=== PATIENT | female | born 1945 | race Caucasian/White ===

== ENCOUNTER 2018-11-30 13:01 | Outpatient (REF) | payer MEDICARE, SELFPAY ==
[2018-11-30 13:55] LABS: Anion Gap 7.4 mmol/L (3-11); BUN 19 mg/dL (7-18); CO2 25.6 mmol/L (21.0-32.0); CREATININE 1.07 mg/dL (0.55-1.02); Calcium 9.5 mg/dL (8.5-10.1); Chloride 107 mmol/L (98-107); Estimated GFR 50.41 (mL/min/1.73m2); Glucose 116 mg/dL (70-100); Potassium 4.1 mmol/L (3.5-5.1); Sodium 140 mmol/L (136-145)
[2018-11-30 14:15] LABS: C-Reactive Protein < 0.05 mg/dL (0.0-0.3)
[2018-11-30 14:47] LABS: ESR 17 mm/hr (0-30)
== END 2018-11-30 13:21 ==
LOC: NCHCN 13:01
PROVIDERS: PCP Internal Medicine; Visit Provider Specialist/Technologist Athletic Trainer
DX: M79.642 Pain in left hand (principal)
CPT/HCPCS: 80048; 85652; 86140

== ENCOUNTER 2019-01-13 11:23 | Outpatient (REF) | payer MEDICARE, SELFPAY ==
[2019-01-13 21:36] LABS: Abs Immature Grans 0.01 k/cumm (0.0-0.09); Absolute Basophil Count 0.07 k/cumm (0.0-0.2); Absolute Eosinophil Count 0.38 k/cumm (0.0-0.7); Absolute Lymphocyte Count 1.78 k/cumm (1.2-3.4); Absolute Monocyte Count 0.47 k/cumm (0.11-0.7); Absolute Neutrophil Count 4.44 k/cumm (1.2-6.7); Eosinophils % 5.3; HCT 39.6 % (36.0-46.0); HGB 13.1 g/dL (12.0-15.5); Immature Grans % 0.1; Lymphocytes % 24.9; Mean Corp. HGB Concentration 33.1 g/dL (32.0-36.0); Mean Corpuscular Hemoglobin 29.3 pg (27.0-33.0); Mean Corpuscular Volume 88.6 fL (80-95); Mean Platelet Volume 10.4 fL (8.0-11.0); Monocytes % 6.6; Neutrophils % 62.1; Platelet Count 350 x1000/uL (130-400); RBC 4.47 m/cumm (4.00-5.20); RBC Distribution Width 12.1 % (11.7-14.6); White Blood Cell Count 7.15 k/cumm (4.4-10.8)
[2019-01-17 08:17] LABS: Lyme Ab w Rflx to Lyme Confirm Negative (Negative)
[2019-01-17 10:40] LABS: Cyclic Citrullinated Peptide <2.5 U/mL; Rheumatoid Factor <7.5 IU/mL
[2019-01-17 16:11] LABS: Anaplasma phagocytophilum Negative (Negative); B. miyamotoi PCR Negative (Negative); Babesia divergens/MO-1 Negative (Negative); Babesia duncani Negative (Negative); Babesia microti Negative (Negative); Ehrlichia chaffeensis Negative (Negative); Ehrlichia ewingii/canis Negative (Negative); Ehrlichia muris eauclairensis Negative (Negative)
== END 2019-01-13 11:43 ==
LOC: NCHCN 11:23
PROVIDERS: PCP Internal Medicine; Visit Provider Internal Medicine
DX: M79.642 Pain in left hand (principal); M12.849 Other specific arthropathies, not elsewhere classified, unspecified hand
CPT/HCPCS: 86200; 87798; 85025; 86431; 86618

== ENCOUNTER 2019-02-27 10:11 | Outpatient (CLI) | payer MEDICARE, SELFPAY ==
[2019-02-27 11:36] LABS: Uric Acid 2.7 mg/dL (2.6-6.0)
== END 2019-02-27 10:31 ==
PROVIDERS: PCP Internal Medicine; Visit Provider Nurse Practitioner Family
DX: R53.82 Chronic fatigue, unspecified (principal); M19.90 Unspecified osteoarthritis, unspecified site; M25.50 Pain in unspecified joint
CPT/HCPCS: 36415; 84443; 84550

== ENCOUNTER 2019-06-23 01:40 | Outpatient (CLI) | payer MEDICARE, SELFPAY ==
[2019-06-23 09:45] LABS: Abs Immature Grans 0.03 k/cumm (0.0-0.09); Absolute Basophil Count 0.03 k/cumm (0.0-0.2); Absolute Eosinophil Count 0.12 k/cumm (0.0-0.7); Absolute Lymphocyte Count 1.24 k/cumm (1.2-3.4); Absolute Monocyte Count 0.23 k/cumm (0.11-0.7); Absolute Neutrophil Count 8.46 k/cumm (1.2-6.7); Basophils % 0.3; Eosinophils % 1.2; HGB 13.2 g/dL (12.0-15.5); Immature Grans % 0.3 %; Lymphocytes % 12.3; Mean Corp. HGB Concentration 32.2 g/dL (32.0-36.0); Mean Corpuscular Hemoglobin 28.8 pg (27.0-33.0); Mean Corpuscular Volume 89.3 fL (80-95); Mean Platelet Volume 9.6 fL (8.0-11.0); Monocytes % 2.3; Neutrophils % 83.6; Platelet Count 342 x1000/uL (130-400); RBC 4.59 m/cumm (4.00-5.20); RBC Distribution Width 13.2 % (11.7-14.6); White Blood Cell Count 10.11 k/cumm (4.4-10.8)
[2019-06-23 10:41] LABS: ALT 36 U/L (14-59); AST 20 U/L (15-37); Albumin 3.6 g/dL (3.4-5.0); Alkaline Phosphatase 80 U/L (46-116); BUN 21 mg/dL (7-18); Bilirubin, Total 0.4 mg/dL (0.2-1.0); C-Reactive Protein < 0.05 mg/dL (0.0-0.3); CREATININE 1.11 mg/dL (0.55-1.02); Chloride 105 mmol/L (98-107); Estimated GFR 48.32 (mL/min/1.73m2); Glucose 113 mg/dL (74-106); Potassium 4.5 mmol/L (3.5-5.1); Sodium 142 mmol/L (136-145); Total Protein 6.7 g/dL (6.4-8.2)
== END 2019-06-23 02:00 ==
PROVIDERS: PCP Internal Medicine; Visit Provider Nurse Practitioner Family
DX: M19.90 Unspecified osteoarthritis, unspecified site (principal); Z79.899 Other long term (current) drug therapy
CPT/HCPCS: 36415; 80053; 85025; 86140

== ENCOUNTER 2019-09-08 01:18 | Outpatient (CLI) | payer MEDICARE, SELFPAY ==
[2019-09-08 10:58] LABS: Abs Immature Grans 0.03 k/cumm (0.0-0.09); Absolute Basophil Count 0.05 k/cumm (0.0-0.2); Absolute Eosinophil Count 0.22 k/cumm (0.0-0.7); Absolute Lymphocyte Count 2.34 k/cumm (1.2-3.4); Absolute Monocyte Count 0.76 k/cumm (0.11-0.7); Absolute Neutrophil Count 5.88 k/cumm (1.2-6.7); Basophils % 0.5; Eosinophils % 2.4; HCT 41.7 % (36.0-46.0); HGB 13.7 g/dL (12.0-15.5); Immature Grans % 0.3 %; Lymphocytes % 25.2; Mean Corp. HGB Concentration 32.9 g/dL (32.0-36.0); Mean Corpuscular Hemoglobin 29.6 pg (27.0-33.0); Mean Corpuscular Volume 90.1 fL (80-95); Mean Platelet Volume 9.6 fL (8.0-11.0); Monocytes % 8.2; Neutrophils % 63.4; Platelet Count 393 x1000/uL (130-400); RBC 4.63 m/cumm (4.00-5.20); RBC Distribution Width 13.5 % (11.7-14.6); White Blood Cell Count 9.28 k/cumm (4.4-10.8)
[2019-09-08 11:44] LABS: ALT 29 U/L (14-59); AST 18 U/L (15-37); Albumin 3.5 g/dL (3.4-5.0); Alkaline Phosphatase 77 U/L (46-116); Anion Gap 6.8 mmol/L (3-11); BUN 21 mg/dL (7-18); Bilirubin, Total 0.2 mg/dL (0.2-1.0); CO2 29.2 mmol/L (21.0-32.0); CREATININE 0.98 mg/dL (0.55-1.02); Calcium 10.2 mg/dL (8.5-10.1); Chloride 104 mmol/L (98-107); Estimated GFR 55.79 (mL/min/1.73m2); Glucose 107 mg/dL (74-106); Potassium 4.4 mmol/L (3.5-5.1); Sodium 140 mmol/L (136-145); Total Protein 6.8 g/dL (6.4-8.2)
[2019-09-08 11:45] LABS: C-Reactive Protein < 0.05 mg/dL (0.0-0.3)
[2019-09-11 09:22] LABS: Hepatitis B Surface Ag Negative (Negative)
[2019-09-13 15:48] LABS: TB Interpretation Negative (Negative)
== END 2019-09-08 01:38 ==
PROVIDERS: PCP Internal Medicine; Visit Provider Nurse Practitioner Family
DX: M06.041 Rheumatoid arthritis without rheumatoid factor, right hand (principal); M06.042 Rheumatoid arthritis without rheumatoid factor, left hand; Z79.899 Other long term (current) drug therapy; M19.90 Unspecified osteoarthritis, unspecified site
CPT/HCPCS: 36415; 80053; 87340; 85025; 86140; 86480

== ENCOUNTER 2019-11-23 10:09 | Outpatient (REF) | payer MEDICARE, SELFPAY ==
[2019-11-23 21:30] LABS: Calculated LDL 155 mg/dL (<100); Cholesterol 232 mg/dL (<200); HDL Cholesterol 51 mg/dL (40-60); Triglyceride 131 mg/dL (<150)
== END 2019-11-23 10:29 ==
LOC: NCHCN 10:09
PROVIDERS: PCP Internal Medicine; Visit Provider Internal Medicine
DX: E78.89 Other lipoprotein metabolism disorders (principal); Z13.6 Encounter for screening for cardiovascular disorders
CPT/HCPCS: 80061

== ENCOUNTER 2020-02-22 01:55 | Outpatient (CLI) | payer MEDICARE, SELFPAY ==
[2020-02-22 09:10] LABS: Abs Immature Grans 0.02 10^3/uL (0.0-0.06); Absolute Basophil Count 0.09 10^3/uL (0.0-0.2); Absolute Eosinophil Count 0.31 10^3/uL (0.0-0.7); Absolute Lymphocyte Count 1.74 10^3/uL (1.2-3.4); Absolute Monocyte Count 0.37 10^3/uL (0.1-0.8); Basophils % 1.2; Eosinophils % 4.2; HCT 39.2 % (36.0-46.0); HGB 12.9 g/dL (11.2-15.7); Immature Grans % 0.3; Lymphocytes % 23.4; MCH 28.5 pg (27.0-33.0); MCHC 32.9 % (32.0-36.0); MCV 86.5 fL (80-95); MPV 9.6 fL (8.0-11.0); Neutrophils % 65.9; Nucleated RBC 0 %; Platelet Count 350 10^3/uL (130-400); RBC 4.53 10^6/uL (3.93-5.22); RDW 12.1 % (11.7-14.6); RDW-SD 38.4 fL; WBC 7.43 10^3/uL (4.4-10.8)
[2020-02-22 11:34] LABS: C-Reactive Protein < 0.05 mg/dL (0.0-0.3)
== END 2020-02-22 02:15 ==
PROVIDERS: PCP Internal Medicine; Visit Provider Nurse Practitioner Family
DX: M19.90 Unspecified osteoarthritis, unspecified site (principal); Z79.899 Other long term (current) drug therapy
CPT/HCPCS: 36415; 80053; 85025; 86140

== ENCOUNTER 2020-05-27 13:49 | Outpatient (REF) | payer MEDICARE, SELFPAY ==
[2020-05-27 14:15] LABS: Calculated LDL 138 mg/dL (<100); Cholesterol 211 mg/dL (<200); HDL Cholesterol 57 mg/dL (40-60); Triglyceride 82 mg/dL (<150)
== END 2020-05-27 13:50 | disposition home or self-care (01) ==
LOC: NCHCN 13:49
PROVIDERS: PCP Internal Medicine; Visit Provider Internal Medicine
DX: Z13.220 Encounter for screening for lipoid disorders (principal)
CPT/HCPCS: 80061

== ENCOUNTER 2020-08-30 02:50 | Outpatient (CLI) | payer MEDICARE, SELFPAY ==
[2020-08-30 10:37] LABS: Abs Immature Grans 0.02 10^3/uL (0.0-0.06); Absolute Basophil Count 0.08 10^3/uL (0.0-0.2); Absolute Eosinophil Count 0.55 10^3/uL (0.0-0.7); Absolute Lymphocyte Count 2.08 10^3/uL (1.2-3.4); Absolute Monocyte Count 0.49 10^3/uL (0.1-0.8); Absolute Neutrophil Count 2.28 10^3/uL (1.2-6.7); Basophils % 1.5; HCT 39.4 % (36.0-46.0); HGB 12.9 g/dL (11.2-15.7); Immature Grans % 0.4; Lymphocytes % 37.8; MCH 29.1 pg (27.0-33.0); MCHC 32.7 % (32.0-36.0); MCV 88.7 fL (80-95); MPV 9.5 fL (8.0-11.0); Monocytes % 8.9; Neutrophils % 41.4; Nucleated RBC 0 %; Platelet Count 300 10^3/uL (130-400); RBC 4.44 10^6/uL (3.93-5.22); RDW 12.1 % (11.7-14.6); RDW-SD 39.2 fL
[2020-08-30 11:22] LABS: ALT 26 U/L (14-59); AST 19 U/L (15-37); Albumin 3.5 g/dL (3.4-5.0); Alkaline Phosphatase 79 U/L (46-116); Anion Gap 9.8 mmol/L (3-11); BUN 22 mg/dL (7-18); Bilirubin, Total 0.3 mg/dL (0.2-1.0); C-Reactive Protein 0.11 mg/dL (0.0-0.3); CO2 27.2 mmol/L (21.0-32.0); Calcium 10.3 mg/dL (8.5-10.1); Chloride 104 mmol/L (98-107); Estimated GFR 54.35 (mL/min/1.73m2); Glucose 94 mg/dL (74-106); Potassium 4.3 mmol/L (3.5-5.1); Sodium 141 mmol/L (136-145); Total Protein 6.9 g/dL (6.4-8.2)
== END 2020-08-30 02:51 | disposition home or self-care (01) ==
LOC: LBO 02:50
PROVIDERS: PCP Internal Medicine; Visit Provider Nurse Practitioner Family
DX: M05.841 Other rheumatoid arthritis with rheumatoid factor of right hand (principal); M05.842 Other rheumatoid arthritis with rheumatoid factor of left hand
CPT/HCPCS: 36415; 80053; 85025; 86140

== ENCOUNTER 2020-12-26 02:40 | Outpatient (CLI) | payer MEDICARE, SELFPAY ==
[2020-12-26 08:42] LABS: Abs Immature Grans 0.01 10^3/uL (0.0-0.06); Absolute Basophil Count 0.08 10^3/uL (0.0-0.2); Absolute Eosinophil Count 0.74 10^3/uL (0.0-0.7); Absolute Lymphocyte Count 1.91 10^3/uL (1.2-3.4); Absolute Monocyte Count 0.54 10^3/uL (0.1-0.8); Absolute Neutrophil Count 2.18 10^3/uL (1.2-6.7); Basophils % 1.5; Eosinophils % 13.6; HCT 38.1 % (36.0-46.0); HGB 12.5 g/dL (11.2-15.7); Immature Grans % 0.2; MCH 29.9 pg (27.0-33.0); MCHC 32.8 % (32.0-36.0); MCV 91.1 fL (80-95); MPV 9.6 fL (8.0-11.0); Monocytes % 9.9; Neutrophils % 39.8; Nucleated RBC 0 %; Platelet Count 249 10^3/uL (130-400); RBC 4.18 10^6/uL (3.93-5.22); RDW 11.9 % (11.7-14.6); RDW-SD 39.9 fL; WBC 5.46 10^3/uL (4.4-10.8)
[2020-12-26 09:38] LABS: ALT 27 U/L (14-59); AST 19 U/L (15-37); Albumin 3.5 g/dL (3.4-5.0); Alkaline Phosphatase 73 U/L (46-116); Anion Gap 5.9 mmol/L (3-11); BUN 20 mg/dL (7-18); Bilirubin, Total 0.3 mg/dL (0.2-1.0); CO2 29.1 mmol/L (21.0-32.0); CREATININE 0.9 mg/dL (0.55-1.02); Calcium 9.7 mg/dL (8.5-10.1); Chloride 106 mmol/L (98-107); Glucose 98 mg/dL (74-106); Potassium 4.2 mmol/L (3.5-5.1); Sodium 141 mmol/L (136-145); Total Protein 6.6 g/dL (6.4-8.2)
[2020-12-26 09:39] LABS: C-Reactive Protein < 0.05 mg/dL (0.0-0.3)
== END 2020-12-26 02:41 | disposition home or self-care (01) ==
LOC: LBO 02:40
PROVIDERS: PCP Internal Medicine; Visit Provider Nurse Practitioner Family
DX: M19.90 Unspecified osteoarthritis, unspecified site (principal); Z79.899 Other long term (current) drug therapy
CPT/HCPCS: 36415; 80053; 85025; 86140

== ENCOUNTER 2021-08-11 03:42 | Outpatient (CLI) | payer MEDICARE, SELFPAY ==
[2021-08-11 12:17] LABS: Abs Immature Grans 0.01 10^3/uL (0.0-0.06); Absolute Basophil Count 0.11 10^3/uL (0.0-0.2); Absolute Eosinophil Count 0.52 10^3/uL (0.0-0.7); Absolute Monocyte Count 0.46 10^3/uL (0.1-0.8); Absolute Neutrophil Count 3.48 10^3/uL (1.2-6.7); Basophils % 1.6; Eosinophils % 7.8; HCT 39.6 % (36.0-46.0); HGB 12.9 g/dL (11.2-15.7); Immature Grans % 0.1; Lymphocytes % 31.4; MCH 29.3 pg (27.0-33.0); MCHC 32.6 % (32.0-36.0); MCV 90 fL (80-95); MPV 9.4 fL (8.0-11.0); Monocytes % 6.9; Neutrophils % 52.2; Platelet Count 302 10^3/uL (130-400); RDW 11.9 % (11.7-14.6); WBC 6.68 10^3/uL (4.4-10.8)
[2021-08-11 14:00] LABS: ALT 28 U/L (14-59); AST 18 U/L (15-37); Albumin 3.5 g/dL (3.4-5.0); Alkaline Phosphatase 83 U/L (46-116); Anion Gap 10.8 mmol/L (3-11); BUN 21 mg/dL (7-18); Bilirubin, Total 0.3 mg/dL (0.2-1.0); CO2 23.2 mmol/L (21.0-32.0); Calcium 9.1 mg/dL (8.5-10.1); Chloride 106 mmol/L (98-107); Glucose 99 mg/dL (74-106); Potassium 4.3 mmol/L (3.5-5.1); Sodium 140 mmol/L (136-145); Total Protein 7.1 g/dL (6.4-8.2)
[2021-08-11 14:15] LABS: C-Reactive Protein < 0.05 mg/dL (0.0-0.3)
== END 2021-08-11 03:43 | disposition home or self-care (01) ==
LOC: LBO 03:42
PROVIDERS: PCP Internal Medicine; Visit Provider Nurse Practitioner Family
DX: M06.041 Rheumatoid arthritis without rheumatoid factor, right hand (principal); M06.042 Rheumatoid arthritis without rheumatoid factor, left hand
CPT/HCPCS: 36415; 80053; 85025; 86140

== ENCOUNTER 2022-03-26 02:50 | Outpatient (CLI) | payer MEDICARE, SELFPAY ==
--- NOTE | 2022-03-26 09:48 | DI.RAD_ITS ---
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 TECHNIQUE: 2D digital imaging was performed. COMPARISON: No exams were available for comparison FINDINGS: Six views No evidence of compression fracture. There is degenerative anterolisthesis of L4 upon L5 with approx imately 1 cm anterior slippage of L4 upon L5 due to facet arthropathy. There are no pars defects justin dent. Mild disc space narrowing noted at the other disc spaces. At L3-4 level there is more prominent disc space narrowing on the right side of the disc space on the left side. There right-sided osteophytes this level. This may indicate an element of foraminal stenosis on the right side at this level ther e is relative preservation of disc height L5-S1. Mild facet joint degenerative changes noted. No os seous lesions. SI joints unremarkable. IMPRESSION: Degenerative findings as described above. Also degenerative anterolisthesis L4 upon L5. DATA REPOSITORY: RADIATION DOSE DELIVERED:
== END 2022-03-26 03:10 ==
LOC: DI 02:50
PROVIDERS: PCP Internal Medicine; Visit Provider Nurse Practitioner Family
DX: M43.16 Spondylolisthesis, lumbar region; M51.17 Intervertebral disc disorders with radiculopathy, lumbosacral region
CPT/HCPCS: 72110

== ENCOUNTER 2022-07-02 02:07 | Outpatient (CLI) | payer MEDICARE, SELFPAY ==
[2022-07-02 08:30] LABS: Abs Immature Grans 0.02 10^3/uL (0.0-0.06); Absolute Basophil Count 0.09 10^3/uL (0.0-0.2); Absolute Eosinophil Count 0.67 10^3/uL (0.0-0.7); Absolute Lymphocyte Count 1.96 10^3/uL (1.2-3.4); Absolute Monocyte Count 0.52 10^3/uL (0.1-0.8); Absolute Neutrophil Count 2.52 10^3/uL (1.2-6.7); Basophils % 1.6; Eosinophils % 11.6; HCT 37.8 % (36.0-46.0); HGB 12.7 g/dL (11.2-15.7); Immature Grans % 0.3; Lymphocytes % 33.9; MCH 29.7 pg (27.0-33.0); MCHC 33.6 % (32.0-36.0); MCV 89 fL (80-95); MPV 9.2 fL (8.0-11.0); Neutrophils % 43.6; Platelet Count 272 10^3/uL (130-400); RBC 4.27 10^6/uL (3.93-5.22); RDW 11.9 % (11.7-14.6); RDW-SD 37.4 fL; WBC 5.78 10^3/uL (4.4-10.8)
[2022-07-02 09:09] LABS: ALT 30 U/L (14-59); AST 24 U/L (15-37); Albumin 3.2 g/dL (3.4-5.0); Alkaline Phosphatase 71 U/L (46-116); Anion Gap 2.4 mmol/L (3-11); BUN 21 mg/dL (7-18); Bilirubin, Total 0.3 mg/dL (0.2-1.0); CO2 30.6 mmol/L (21.0-32.0); Calcium 9.3 mg/dL (8.5-10.1); Chloride 106 mmol/L (98-107); Estimated GFR 58.75 (mL/min/1.73m2); Glucose 97 mg/dL (74-106); Potassium 4.2 mmol/L (3.5-5.1); Sodium 139 mmol/L (136-145); Total Protein 6.7 g/dL (6.4-8.2)
[2022-07-02 09:11] LABS: C-Reactive Protein < 0.05 mg/dL (0.0-0.3)
== END 2022-07-02 02:08 | disposition home or self-care (01) ==
LOC: LBO 02:08
PROVIDERS: PCP Internal Medicine; Visit Provider Nurse Practitioner Family
DX: M06.041 Rheumatoid arthritis without rheumatoid factor, right hand (principal); M06.042 Rheumatoid arthritis without rheumatoid factor, left hand; D84.821 Immunodeficiency due to drugs; Z79.899 Other long term (current) drug therapy
CPT/HCPCS: 36415; 80053; 85025; 86140

== ENCOUNTER 2023-01-27 11:29 | Outpatient (REF) | payer MEDICARE, SELFPAY ==
[2023-01-27 14:28] LABS: Abs Immature Grans 0.01 10^3/uL (0.0-0.06); Absolute Eosinophil Count 0.51 10^3/uL (0.0-0.7); Absolute Lymphocyte Count 2.02 10^3/uL (1.2-3.4); Absolute Monocyte Count 0.43 10^3/uL (0.1-0.8); Absolute Neutrophil Count 2.85 10^3/uL (1.2-6.7); Basophils % 1.7; Eosinophils % 8.6; HCT 38.7 % (36.0-46.0); Immature Grans % 0.2; Lymphocytes % 34.1; MCH 29.4 pg (27.0-33.0); MCHC 33.6 % (32.0-36.0); MCV 88 fL (80-95); MPV 10.2 fL (8.0-11.0); Monocytes % 7.3; Neutrophils % 48.1; Platelet Count 311 10^3/uL (130-400); RBC 4.42 10^6/uL (3.93-5.22); RDW 11.8 % (11.7-14.6); WBC 5.92 10^3/uL (4.4-10.8)
[2023-01-27 14:56] LABS: ALT 25 U/L (14-59); AST 20 U/L (15-37); Albumin 3.3 g/dL (3.4-5.0); Alkaline Phosphatase 79 U/L (46-116); Anion Gap 4.1 mmol/L (3-11); BUN 24 mg/dL (7-18); Bilirubin, Total 0.3 mg/dL (0.2-1.0); CO2 26.9 mmol/L (21.0-32.0); Calcium 10.2 mg/dL (8.5-10.1); Calculated LDL 139 mg/dL (<100); Chloride 106 mmol/L (98-107); Cholesterol 221 mg/dL (<200); Estimated GFR 58.39 (mL/min/1.73m2); Glucose 122 mg/dL (74-106); HDL Cholesterol 52 mg/dL (40-60); Potassium 4.2 mmol/L (3.5-5.1); Sodium 137 mmol/L (136-145); Total Protein 7.1 g/dL (6.4-8.2); Triglyceride 152 mg/dL (<150)
== END 2023-01-27 11:30 | disposition home or self-care (01) ==
LOC: NCHCN 11:29
PROVIDERS: PCP Family Medicine; Visit Provider Family Medicine
DX: I10 Essential (primary) hypertension (principal)
CPT/HCPCS: 80053; 80061; 85025

== ENCOUNTER 2023-09-28 01:33 | Outpatient (CLI) | payer MEDICARE, SELFPAY ==
[2023-09-28 11:34] LABS: Abs Immature Grans 0.01 10^3/uL (0.0-0.06); Absolute Basophil Count 0.03 10^3/uL (0.0-0.2); Absolute Eosinophil Count 0.01 10^3/uL (0.0-0.7); Absolute Lymphocyte Count 0.56 10^3/uL (1.2-3.4); Absolute Monocyte Count 0.11 10^3/uL (0.1-0.8); Absolute Neutrophil Count 1.28 10^3/uL (1.2-6.7); Basophils % 1.5 %; Eosinophils % 0.5 %; HCT 39.2 % (36.0-46.0); HGB 12.3 g/dL (11.2-15.7); Immature Grans % 0.5 %; MCH 26.6 pg (27.0-33.0); MCHC 31.4 % (32.0-36.0); MCV 85 fL (80-95); MPV 9.4 fL (8.0-11.0); Monocytes % 5.5 %; Platelet Count 216 10^3/uL (130-400); RBC 4.63 10^6/uL (3.93-5.22); RDW 14.2 % (11.7-14.6); RDW-SD 43.7 fL
[2023-09-28 11:43] LABS: ALT 25 U/L (14-59); AST 24 U/L (15-37); Albumin 3.1 g/dL (3.4-5.0); Alkaline Phosphatase 87 U/L (46-116); Anion Gap 6.1 mmol/L (3-11); BUN 16 mg/dL (7-18); Bilirubin, Total 0.18 mg/dL (0.2-1.0); CO2 29.9 mmol/L (21.0-32.0); Calcium 10.2 mg/dL (8.5-10.1); Chloride 102 mmol/L (98-107); Estimated GFR 58.39 (mL/min/1.73m2); Glucose 117 mg/dL (74-106); Potassium 4.4 mmol/L (3.5-5.1); Sodium 138 mmol/L (136-145); Total Protein 7.2 g/dL (6.4-8.2)
== END 2023-09-28 01:34 | disposition home or self-care (01) ==
LOC: LBO 01:33
PROVIDERS: PCP Family Medicine; Visit Provider Student in an Organized Health Care Education/Training Program
DX: Z79.899 Other long term (current) drug therapy (principal); M06.041 Rheumatoid arthritis without rheumatoid factor, right hand; M06.042 Rheumatoid arthritis without rheumatoid factor, left hand; D84.821 Immunodeficiency due to drugs
CPT/HCPCS: 36415; 80053; 85025

== ENCOUNTER 2023-09-29 08:16 | Outpatient (CLI) | payer MEDICARE, SELFPAY ==
[2023-09-29 08:55] LABS: Abs Immature Grans 0.01 10^3/uL (0.0-0.06); Absolute Basophil Count 0.02 10^3/uL (0.0-0.2); HCT 38.4 % (36.0-46.0); HGB 12.3 g/dL (11.2-15.7); MCH 27.5 pg (27.0-33.0); MCV 86 fL (80-95); MPV 9.4 fL (8.0-11.0); Platelet Count 185 10^3/uL (130-400); RBC 4.48 10^6/uL (3.93-5.22); RDW 14.2 % (11.7-14.6)
[2023-09-29 09:34] LABS: WBC 1.86 10^3/uL (4.4-10.8)
[2023-09-29 09:35] LABS: Absolute Eosinophil Count 0.04 10^3/uL (0.0-0.7); Absolute Lymphocyte Count 0.48 10^3/uL (1.2-3.4); Absolute Monocyte Count 0.07 10^3/uL (0.1-0.8); Absolute Neutrophil Count 1.23 10^3/uL (1.2-6.7); Bands % 16 %; Diff Comment Manual Differential; Myelocytes % 1; RBC Morphology Normal
[2023-09-29 09:59] LABS: COMMENT (LAB VIEW ONLY) 213.33 mg/dL; PROTEIN 51.4 mg/dL; Prot/Crea Ur Ratio 0.24
[2023-09-29 12:18] LABS: Bilirubin Negative (Negative); Blood Negative (Negative); Clarity Sl Cloudy (Clear); Glucose Negative (Negative); Ketones Trace mg/dL (Negative); Leukocyte Esterase Negative (Negative); Nitrite Negative (Negative); Urobilinogen 0.2 mg/dL (Up to 0.2)
[2023-09-30 09:43] LABS: C3 Complement 101 mg/dL (81-157); C4 Complement 31 mg/dL (13-39)
[2023-09-30 12:38] LABS: ANA Interpretation Negative (Negative)
[2023-09-30 13:17] LABS: RNP Ab, IgG <6.0 CU (<20.0); Ro60 Ab, IgG <7.0 CU (<20.0); SS-A/Ro, IgG <2.3 CU (<20.0); SS-B (La) Ab, IgG <3.3 CU (<20.0); Sm (Smith) Ab, IgG <8.0 CU (<20.0); dsDNA Ab, IgG <22.0 IU/mL (<27.0)
[2023-09-30 14:53] LABS: Albumin 50.7 % (55.8-66.1); Albumin g/dL 3.3 g/dL (3.6-5.2); Immunotyping, Serum (See Note); Total Protein 6.6 g/dL (6.3-8.2)
[2023-09-30 16:00] LABS: Leukemia/Lymphoma by FC (Blood (See below)
== END 2023-09-29 08:17 | disposition home or self-care (01) ==
LOC: LBO 08:17
PROVIDERS: PCP Family Medicine; Visit Provider Student in an Organized Health Care Education/Training Program
DX: D72.810 Lymphocytopenia (principal)
CPT/HCPCS: 36415; 88185; 81003; 82565; 84155; 84156; 84165; 85025; 86038; 86160; 86225; 86235; 86320; 88184; 88189

== ENCOUNTER 2023-10-11 13:46 | Outpatient (CLI) | payer MEDICARE, SELFPAY ==
--- NOTE | 2023-10-11 14:00 | DI.RAD_ITS ---
Exam(s) XR HIP RT COMPLETE AP PELVIS EXAM: XR HIP RT COMPLETE AP PELVIS CLINICAL HISTORY: right hip pain. TECHNIQUE: 2D digital imaging was performed. Two views COMPARISON: No exams were available for comparison FINDINGS: BONES: No acute fracture is present. No bony destructive lesion is seen. JOINTS: No dislocation present. Moderate to severe narrowing of the right hip joint space. Periart icular spurring. Subchondral cysts on both sides of the joint. [id number] narrowing of the le ft hip joint space. Periarticular spurring. Small subchondral cysts. Mild degenerative changes of the pubic symphysis. SI joints are unremarkable. SOFT TISSUE: Normal. IMPRESSION: Moderate to severe degenerative changes of the right hip. [id number] degenerative changes of t he left hip. DATA REPOSITORY: RADIATION DOSE DELIVERED:
--- NOTE | 2023-10-11 14:00 | DI.RAD_ITS ---
Exam(s) XR KNEE RT 4V AP,LAT,JOSE,PAT EXAM: XR KNEE RT 4V AP,LAT,JOSE,PAT CLINICAL HISTORY: right knee pain. TECHNIQUE: 2D digital imaging was performed. Three views. COMPARISON: No exams were available for comparison FINDINGS: BONES: No acute fracture is present. No bony destructive lesion is seen. Enthesophyte upper pole pa tella. JOINTS: The knee is normally aligned. No joint effusion is seen. Mild narrowing of the medial femor al tibial joint space and mild periarticular spurring. The patellofemoral joint space is maintained. Chondrocalcinosis. SOFT TISSUE: Normal. IMPRESSION: Mild degenerative changes of the medial femoral tibial joint. Chondrocalcinosis. DATA REPOSITORY: RADIATION DOSE DELIVERED:
== END 2023-10-11 13:47 | disposition home or self-care (01) ==
PROVIDERS: PCP Family Medicine; Referring Provider Family Medicine; Visit Provider Student in an Organized Health Care Education/Training Program
DX: M16.11 Unilateral primary osteoarthritis, right hip; M17.11 Unilateral primary osteoarthritis, right knee; M11.261 Other chondrocalcinosis, right knee; M66.0 Rupture of popliteal cyst
CPT/HCPCS: 99203; 73502; 73564

== ENCOUNTER 2023-10-27 02:53 | Outpatient (CLI) | payer MEDICARE, SELFPAY ==
[2023-10-27 12:21] LABS: Abs Immature Grans 0.01 10^3/uL (0.0-0.06); Absolute Basophil Count 0.11 10^3/uL (0.0-0.2); Absolute Eosinophil Count 0.45 10^3/uL (0.0-0.7); Absolute Lymphocyte Count 2.72 10^3/uL (1.2-3.4); Absolute Monocyte Count 0.45 10^3/uL (0.1-0.8); Absolute Neutrophil Count 2.47 10^3/uL (1.2-6.7); Basophils % 1.8 %; Eosinophils % 7.2 %; HCT 36.4 % (36.0-46.0); HGB 11.7 g/dL (11.2-15.7); Immature Grans % 0.2 %; Lymphocytes % 43.8 %; MCH 27.3 pg (27.0-33.0); MCHC 32.1 % (32.0-36.0); MCV 85 fL (80-95); MPV 9.5 fL (8.0-11.0); Monocytes % 7.2 %; Neutrophils % 39.8 %; Platelet Count 306 10^3/uL (130-400); RBC 4.29 10^6/uL (3.93-5.22); RDW 13.7 % (11.7-14.6); RDW-SD 42.4 fL; WBC 6.21 10^3/uL (4.4-10.8)
[2023-10-27 13:10] LABS: ALT 18 U/L (14-59); AST 18 U/L (15-37); Albumin 3.2 g/dL (3.4-5.0); Alkaline Phosphatase 88 U/L (46-116); Anion Gap 5.9 mmol/L (3-11); BUN 18 mg/dL (7-18); Bilirubin, Total 0.18 mg/dL (0.2-1.0); CO2 29.1 mmol/L (21.0-32.0); CREATININE 0.9 mg/dL (0.55-1.02); Calcium 10.1 mg/dL (8.5-10.1); Chloride 105 mmol/L (98-107); Estimated GFR 65.84 (mL/min/1.73m2); Glucose 121 mg/dL (74-106); Potassium 4.1 mmol/L (3.5-5.1); Sodium 140 mmol/L (136-145); Total Protein 7.9 g/dL (6.4-8.2)
== END 2023-10-27 02:54 | disposition home or self-care (01) ==
LOC: LBO 02:54
PROVIDERS: PCP Family Medicine; Visit Provider Student in an Organized Health Care Education/Training Program
DX: M06.041 Rheumatoid arthritis without rheumatoid factor, right hand (principal); M25.551 Pain in right hip; M25.561 Pain in right knee; M11.20 Other chondrocalcinosis, unspecified site; M16.11 Unilateral primary osteoarthritis, right hip; M17.11 Unilateral primary osteoarthritis, right knee; M66.0 Rupture of popliteal cyst
CPT/HCPCS: 36415; 80053; 85025

== ENCOUNTER → 2023-10-28 14:22 | Outpatient (BNVA) | payer MEDICARE, SELFPAY | PROVIDERS: PCP Family Medicine; Referring Provider Family Medicine; Visit Provider Physician Assistant | DX: M16.11 Unilateral primary osteoarthritis, right hip (principal) | CPT/HCPCS: 20611; J1010 ==

== ENCOUNTER 2024-01-28 09:14 | Outpatient (CLI) | payer MEDICARE, SELFPAY ==
[2024-01-28 07:54] LABS: Abs Immature Grans 0.01 10^3/uL (0.0-0.06); Absolute Eosinophil Count 0.66 10^3/uL (0.0-0.7); Absolute Lymphocyte Count 2.69 10^3/uL (1.2-3.4); Absolute Monocyte Count 0.51 10^3/uL (0.1-0.8); Absolute Neutrophil Count 2.92 10^3/uL (1.2-6.7); Basophils % 1.5 %; Eosinophils % 9.6 %; HCT 38.6 % (36.0-46.0); HGB 12.4 g/dL (11.2-15.7); Immature Grans % 0.1 %; MCH 27.5 pg (27.0-33.0); MCHC 32.1 % (32.0-36.0); MCV 86 fL (80-95); MPV 9.2 fL (8.0-11.0); Monocytes % 7.4 %; Neutrophils % 42.4 %; Platelet Count 367 10^3/uL (130-400); RBC 4.51 10^6/uL (3.93-5.22); RDW 13.2 % (11.7-14.6); RDW-SD 40.7 fL; WBC 6.89 10^3/uL (4.4-10.8)
[2024-01-28 08:22] LABS: ALT 20 U/L (14-59); AST 20 U/L (15-37); Albumin 3.3 g/dL (3.4-5.0); Alkaline Phosphatase 86 U/L (46-116); Anion Gap 5.8 mmol/L (3-11); BUN 20 mg/dL (7-18); Bilirubin, Total 0.37 mg/dL (0.2-1.0); CO2 29.2 mmol/L (21.0-32.0); Calcium 9.9 mg/dL (8.5-10.1); Chloride 104 mmol/L (98-107); Estimated GFR 58.02 (mL/min/1.73m2); Glucose 98 mg/dL (74-106); Potassium 4.1 mmol/L (3.5-5.1); Sodium 139 mmol/L (136-145); Total Protein 7.4 g/dL (6.4-8.2)
== END 2024-01-28 09:15 | disposition home or self-care (01) ==
LOC: LBO 09:15
PROVIDERS: PCP Family Medicine; Visit Provider Student in an Organized Health Care Education/Training Program
DX: M06.042 Rheumatoid arthritis without rheumatoid factor, left hand (principal)
CPT/HCPCS: 36415; 80053; 85025

== ENCOUNTER 2024-05-11 01:44 | Outpatient (CLI) | payer MEDICARE, SELFPAY ==
--- NOTE | 2024-05-11 | DI.DEXA_ITS ---
Exam(s) XR DEXA BONE DENSITY W/WO JASMYN EXAM: XR DEXA BONE DENSITY W/WO JASMYN CLINICAL HISTORY: Asymptomatic postmenopausal state, Z78.0 TECHNIQUE: Metaset C densitometer analysis of left hip, lumbar spine and left forearm. Lat eral survey image of the thoracic and lumbar spine. COMPARISON: CR XR LUMBAR SPINE COMPLETE from 03/26/2022 CR XR HIP RT COMPLETE AP PELVIS from 10/11/2023 FINDINGS: Lateral view of the thoracic and lumbar spine shows no evidence of compression fractures. Bone mineral density measurements of the lumbar spine correspond to a total T-score of -0.3, in the normal range. Bone mineral density measurements of the left hip correspond to a total T-score of -1.6. The femora l neck T-score is -2.3, in the osteopenic range.. Theleft forearm bone mineral density measurements correspond to a T-score of the distal 3rd of -0.1, in the normal range.. IMPRESSION: Normal bone mineral density of the spine and forearm. Osteopenia of the hip.
== END 2024-05-11 02:04 ==
LOC: DI 01:44
PROVIDERS: PCP Family Medicine; Visit Provider Family Medicine
DX: M85.89 Other specified disorders of bone density and structure, multiple sites (principal); Z78.0 Asymptomatic menopausal state
CPT/HCPCS: 77080

== ENCOUNTER 2024-09-18 08:27 | Outpatient (CLI) | payer MEDICARE, SELFPAY ==
--- NOTE | 2024-09-18 08:15 | DI.RAD_ITS ---
Exam(s) XR PELVIS AP EXAM: XR PELVIS AP CLINICAL HISTORY: DJD R HIP. TECHNIQUE: 2D digital imaging was performed.Two images were obtained. COMPARISON: CR XR HIP RT COMPLETE AP PELVIS from 10/11/2023 FINDINGS: BONES: No acute fracture is present. No bony destructive lesion is seen. There is a well corticated osseous density inferior to the ischium which is chronic. JOINTS: No dislocation present. There are marked degenerative changes seen in the right hip with loss of the superior joint space. Subchondral sclerosis is seen. Osteophytes are seen at both the acetabulum and the femoral head. There is mild joint space narrowing in the left hip. The sacroiliac joints and symphysis pubis are intact. SOFT TISSUE: Normal. IMPRESSION: Marked degenerative changes seen in the right hip. DATA REPOSITORY: RADIATION DOSE DELIVERED:
== END 2024-09-18 08:28 | disposition home or self-care (01) ==
LOC: DIORS 08:27
PROVIDERS: PCP Family Medicine; Referring Provider Family Medicine; Visit Provider Student in an Organized Health Care Education/Training Program
DX: M16.11 Unilateral primary osteoarthritis, right hip (principal); M54.32 Sciatica, left side
CPT/HCPCS: 99214; 72170

== ENCOUNTER 2024-11-07 10:03 | Outpatient (CLI) | payer MEDICARE, SELFPAY ==
[2024-11-07 13:55] LABS: Abs Immature Grans 0.03 10^3/uL (0.0-0.06); HCT 37.3 % (36.0-46.0); HGB 12.2 g/dL (11.2-15.7); Immature Grans % 0.3 %; MCH 28.4 pg (27.0-33.0); MCHC 32.7 % (32.0-36.0); MCV 87 fL (80-95); MPV 9.1 fL (8.0-11.0); Platelet Count 348 10^3/uL (130-400); RBC 4.30 10^6/uL (3.93-5.22); RDW 12.8 % (11.7-14.6); RDW-SD 40.4 fL; WBC 9.81 10^3/uL (4.4-10.8)
[2024-11-07 15:08] LABS: ALT 21 U/L (14-59); AST 17 U/L (15-37); Albumin 3.3 g/dL (3.4-5.0); Alkaline Phosphatase 84 U/L (46-116); Anion Gap 6.6 mmol/L (3-11); BUN 28 mg/dL (7-18); Bilirubin, Total 0.3 mg/dL (0.2-1.0); CO2 29.4 mmol/L (21.0-32.0); Calcium 9.4 mg/dL (8.5-10.1); Chloride 104 mmol/L (98-107); Estimated GFR 75.37 (mL/min/1.73m2); Glucose 107 mg/dL (74-106); Potassium 4.5 mmol/L (3.5-5.1); Sodium 140 mmol/L (136-145); Total Protein 6.8 g/dL (6.4-8.2)
== END 2024-11-07 10:04 | disposition home or self-care (01) ==
LOC: LBO 10:03
PROVIDERS: PCP Family Medicine; Visit Provider Student in an Organized Health Care Education/Training Program
DX: M06.041 Rheumatoid arthritis without rheumatoid factor, right hand (principal)
CPT/HCPCS: 36415; 80053; 85025

== ENCOUNTER → 2024-12-14 10:00 | Outpatient (BNVA) | payer MEDICARE, SELFPAY | PROVIDERS: PCP Family Medicine; Referring Provider Family Medicine; Visit Provider Physician Assistant | DX: Z01.818 Encounter for other preprocedural examination (principal); M16.11 Unilateral primary osteoarthritis, right hip | CPT/HCPCS: 99024 ==

== ENCOUNTER 2024-12-20 05:55 | Day surgery (SDC) | payer MEDICARE, SELFPAY ==
[2024-12-20] VITALS (31 sets, daily range): BP systolic 125–162; BP diastolic 59–96; PULSE 54–88; RESP 0–20; TEMP 36.6–36.8; O2SAT 95–100
[2024-12-20] MEDS: Celecoxib 200 MG CAP 400 MG PO (06:31)
[2024-12-20] MEDS: Acetaminophen 500 MG TAB 1000 MG PO (06:31)
[2024-12-20] MEDS: Lactated Ringers 1,000 ML 80 ML IV (06:40)
--- NOTE | 2024-12-20 06:45 | DI.RAD_ITS ---
Exam(s) XR HIP RT IN OR EXAM: XR HIP RT IN OR CLINICAL HISTORY: Degenerative joint disease of right hip. TECHNIQUE: 2D and realtime digital imaging was performed. COMPARISON: CR XR PELVIS AP from 09/18/2024 FINDINGS: Hard copy images show placement of a right hip prosthesis. The alignment appears satisfactory. Please see procedure note for details. Fluoro time: 25.5seconds RADIATION DOSE DELIVERED: Ka,r=2.0 mGy
--- NOTE | 2024-12-20 06:55 | W.ANESPRE ---
General Info Date of Service Date Performed: 12/20/24 Height: 4 ft 11 in Weight: 44.996 kg Body Mass Index (BMI): 20.0 Surgical Procedure: Operation Date: 12/20/24 07:50 Proposed Procedure Side Surgeon p Hip Total Hip Anterior, Corail Right Ming Colon MD Meds Allergies and Home Medications Allergies Allergy/AdvReac Type Severity Reaction Status Date / Time colchicine Allergy Severe Other (See Verified 12/20/24 06:04 Comment) acetaminophen (From Percocet) AdvReac Mild Other (See Verified 12/20/24 06:04 Comment) oxycodone (From Percocet) AdvReac Mild Other (See Verified 12/20/24 06:04 Comment) codeine AdvReac Other (See Verified 12/20/24 06:04 Comment) Home Medication ?Medication ?Instructions ?Recorded albuterol sulfate 90 mcg/actuation 2 puff inhalation Q6H PRN 08/10/23 aerosol inhaler (Ventolin HFA) etanercept 50 mg/mL (1 mL) 50 mg subcut QWEEK 08/10/23 subcutaneous syringe (Enbrel) gabapentin 300 mg capsule 300 mg PO HS 08/10/23 losartan 25 mg tablet 25 mg PO DAILY 08/10/23 pantoprazole 20 mg tablet,delayed 20 mg PO DAILY 08/10/23 release acetaminophen 500 mg tablet 1,000 mg (2 x 500 mg) PO TID #90 12/14/24 tabs aspirin 81 mg tablet,delayed 81 mg PO BID #60 tabs 12/14/24 release dexamethasone 4 mg tablet 4 mg PO DAILY #2 tabs 12/14/24 docusate sodium 100 mg capsule 100 mg PO BID PRN #28 caps 12/14/24 ibuprofen 600 mg tablet 600 mg PO TID PRN #90 tabs 12/14/24 tramadol 50 mg tablet 50 mg PO Q4H PRN pain #12 tabs 12/14/24 umeclidinium 62.5 mcg-vilanterol 1 inh inhalation DAILY 12/14/24 25 mcg/actuation powdr for inhalation (Anoro Ellipta) Current Visit Medications: Current Medications Generic Name Dose Route Start Last Admin Trade Name Freq PRN Reason Stop Dose Admin Acetaminophen 1,000 mg 12/20/24 06:00 12/20/24 06:31 Acetaminophen 500 Mg Tab PO 12/20/24 23:59 1,000 mg PREOP CATE Administration Celecoxib 400 mg 12/20/24 06:00 12/20/24 06:31 Celecoxib 200 Mg Cap PO 12/20/24 23:59 400 mg PREOP CATE Administration Ringer's Solution 1,000 mls @ 80 mls/hr 12/20/24 06:00 12/20/24 06:40 IV 12/20/24 23:59 80 mls/hr INFUSION CATE Administration Cefazolin Sodium/Dextrose 2 gm in 50 mls @ 100 mls/hr 12/20/24 06:00 Ancef Duplex IVPB 12/20/24 23:59 PREOP CATE Tranexamic Acid/Sodium Chloride 1,000 mg in 100 mls @ 600 mls/hr 12/20/24 06:00 IVPB 12/20/24 23:59 PREOP CATE IV Miscellaneous Supplies 1 each 12/20/24 06:00 Iv Access IV 12/20/24 23:59 DIRECTED CATE Sodium Chloride 0 ml 12/20/24 06:00 Normal Saline Flush 10 Ml Syr IV 12/20/24 23:59 PRN PRN Sodium Chloride 0 ml 12/20/24 06:00 Normal Saline 10 Ml Vial IJ 12/20/24 23:59 DIRECTED PRN Sterile Water 0 ml 12/20/24 06:00 Water,Injection,Sterile 10 Ml Vial IJ 12/20/24 23:59 DIRECTED PRN PFSH Active Problems Active Problems: Problem Status Onset Code Degenerative joint disease of right knee Acute M17.11 Degenerative joint disease of right hip Acute M16.11 Chondrocalcinosis Acute M11.20 Hyperlipidemia Acute E78.5 Mild intermittent asthma Acute J45.20 Left foot drop Acute M21.372 Lumbosacral radiculopathy Acute M54.17 Ruptured synovial cyst of popliteal space Acute M66.0 Rheumatoid arthritis Chronic M06.9 Medical History Medical History Cataract GERD (gastroesophageal reflux disease) Sciatica Hypertensive disorder Tobacco Smoking/Tobacco Use Status: Never Passive smoking exposure: No Alcohol Alcohol Intake: current Alcohol intake frequency: holidays/special occasions only Substance Use Substance use: Never Substance use type: does not use Vital Signs and Lab Results Vital Signs Most Recent Vital Signs in EMR: Most Recent Vital Signs Temp Pulse Resp BP Pulse Ox 36.8 C 88 17 162/96 H 95 12/20/24 06:08 12/20/24 06:08 12/20/24 06:08 12/20/24 06:08 12/20/24 06:08 Anesthesia Assessment and Plan Anesthesia History Personal History: No History of Anesthesia Complications Family History: No Family History of Anesthesia Complications Exercise Tolerance Exercise Tolerance: Metabolic Equivalents>4 Pertinent Negatives Pertinent Negatives: No Symptoms of GERD, No Major Cardiovascular Symptoms or Complaints, No Major Pulmonary Symptoms or Complaints and No History of CVA/TIA Cardiac & Pulmonary Exam Cardiac Exam: Normal S1/S2 Heart Sounds Pulmonary Exam: Clear Bilateral Breath Sounds Implantable Cardiac Device Does patient have a Pacemaker or an ICD?: No Airway Exam Known Difficult Airway: No Mallampati Class: 2 Mouth Opening: Normal (> 3cm) Thyromental Distance: Greater than 3 cm Neck Range of Motion: Limited ROM Neck Circumference: Normal Teeth Condition: Normal Dentition ASA Classification ASA Score: ASA 2 Emergency Case?: No NPO Status NPO Status: NPO Clears >2 hours, Solids >8 hours Anesthesia Plan Resuscitation Status: Full Code Anesthesia Technique: Spinal Anesthesia Airway Planned: Natural Airway Monitors Used: Standard Monitors
--- NOTE | 2024-12-20 07:10 | PDOC.DSDIS_ITS ---
Date of service: 12/20/24 Discharge Plan Disposition Patient Disposition: Home Condition: Good Discharge Details Reason For Visit: R THR Attending Provider: Ming Colon Primary Care Provider: Brielle Adams Home Meds and New Rx's Prescriptions: New aspirin 81 mg tablet,delayed release (DR/EC) 81 mg PO BID Qty: 60 0RF tramadol 50 mg tablet 50 mg PO Q4H PRN (Reason: pain) Qty: 12 0RF acetaminophen 500 mg tablet 1,000 mg PO TID Qty: 90 3RF dexamethasone 4 mg tablet 4 mg PO DAILY Qty: 2 0RF docusate sodium 100 mg capsule 100 mg PO BID PRNQty: 28 0RF ibuprofen 600 mg tablet 600 mg PO TID PRNQty: 90 3RF Continued umeclidinium-vilanterol [Anoro Ellipta] 62.5-25 mcg/actuation blister with device 1 inh inhalation DAILY Enbrel 50 mg/mL (1 mL) syringe 50 mg subcut QWEEK gabapentin 300 mg capsule 300 mg PO HS losartan 25 mg tablet 25 mg PO DAILY pantoprazole 20 mg tablet,delayed release (DR/EC) 20 mg PO DAILY albuterol sulfate [Ventolin HFA] 90 mcg/actuation HFA aerosol inhaler 2 puff inhalation Q6H PRN Discharge Instructions Additional Instructions: Total Hip Discharge Instructions Activity: The most important activity is to walk. You should try to take short walks a few times a day. You have no restrictions on movement or positioning, but do not try to force what you do. You will find some stiffness and weakness with hip flexion (lifting your knee). Do not try to strengthen this too early, continue to practice walking and stairs and this will come. - Outpatient physical therapy can be helpful to help return you to a normal gait and improve your flexibility and strength. This can start around 2 weeks. For some patients, it?s not necessary. Usually this is determined at the time of discharge or at the first post-operative visit. - You should wear the FABIO hose on both legs for 2 weeks. Dressing: Keep the surgical dressing in place for at least one week. After the first week it may be removed and replace with light gauze and tape or nothing. It may get wet after 3 days but avoid soaking the dressing. If it gets wet, just lightly pat dry. It is important to always keep some gauze between skin folds, especially when you are sitting. Spend some time with the wound exposed when you are lying flat as the incision does wrinkle onto itself. Medications: - You should take Tylenol and an anti-inflammatory ibuprofen as your primary pain control medications. - You have been prescribed a stronger pain medication tramadol for breakthrough pain, take as needed as prescribed. - You will be taking your stomach acid reduction agent Pantoprozole to help reduce stomach acid and reflux. - You have also been prescribed Decadron to help with post-operative nausea and pain. You will take this for two days starting tomorrow. - You will be taking Aspirin 81mg twice a day for DVT prevention unless instructed otherwise. - If you have constipation you should take Colace or Miralax (both [id number]). It takes most people 3-4 days to have a bowel movement. Follow-up: 2 weeks If you have any acute concerns or questions, please do not hesitate to contact the office at [phone]. You may contact Dr. Colon with any questions after hours through the hospital at [phone] or on his cell phone at [phone]. Referrals: Ming Colon MD [ [facility] STAFF PHYSICIAN, Orthopaedic Surgical] Equipment/Supplies: Walker Activity:: Activity as Tolerated Shower/Bathe:: 72 hours Diet:: As Tolerated Discharge Orders Discharge Orders: Discharge Order (Routine); Ordered 12/20/24 Ordered By: Martin Brooks DS: Diagnosis Discharge Diagnosis (1) Degenerative joint disease of right hip: Status: Acute
--- NOTE | 2024-12-20 07:33 | W.PM.OP ---
Operative Note Operative Note PRE-OP DIAGNOSIS: Right Hip Osteoarthritis POST-OP DIAGNOSIS: same PROCEDURE: Right Anterior Total Hip Arthroplasty with Intraoperative Navigation SURGEON: Ming Colon APPARATUS ENGINEERING TECHNOLOGIST: Martin Brooks ANESTHESIA TYPE: General LMA/ETT Refer to Anesthesia Record ESTIMATED BLOOD LOSS: 200 PATHOLOGY: none sent TOURNIQUET TIME: 0 COMPLICATIONS: None Patient was transported to: PACU Patient's condition: stable Implants: 1. Depuy Wilmore Acetabular Component, 48mm 2. Depuy Acetabular Liner, 86n77im 3. Depuy Corail Short Neck Collared Femoral Stem, Size 10 4. Depuy Altrx Ceramic Femoral Head, Size 32+5mm Indications: I have seen Ninfa in clinic for symptoms of hip arthritis, confirmed with radiographic findings. Ninfa has exhausted nonoperative methods and was having significant limitations in daily function and desired better function and less pain. I discussed the technical details of a hip replacement. I explained the risks of the procedure to include, but not limited to, bleeding, infection, pain, stiffness, fracture, damage to nerves and vessels, damage to muscles and tendons, loosening, instability, leg length inequality, need for repeat procedure, blood clot and cardiopulmonary demise. Despite these risks, Ninfa elected to proceed. Findings: There was significant signs of arthritis throughout the hip along with notable synovitis. Procedure Description: Ninfa was greeted in the preoperative holding area where the correct side was identified and marked. The consent was reviewed with the patient and signed. The history and physical was updated. All questions were answered. She was taken back to the operating room. A general anesthestic was then administered. The feet were wrapped with cast padding and Coban and then placed into the boot liners and then into the boots. Care was taken to protect the skin and make sure the heels were fully down and the boots were stable. The patient was then positioned onto the HANA table. Both legs were held in a neutral position. SCDs were applied. The patient was then slid down onto a peroneal post. Prophylactic antibiotics in the form of Cefazolin were administered. 1g of Tranxemic Acid was given intravenously within 30 minutes of incision. The right leg was then prepped with Chloraprep and draped in a standard fashion. A second prep with Chloraprep was performed prior to placement of a shower-curtain type drape with Iodine impregnated skin protection. A timeout to confirm correct identity, side and site, procedure, allergies, anesthesia, and medical concerns was performed. An obliquely oriented incision was made starting lateral to the ASIS and running distal over the Tensor Fascia Stefanie (TFL) muscle belly toward the fibular head, approximately 10cm. The skin and soft tissue was dissected sharply, through Geetha?s fascia, and to the fascia of the TFL. With the fascia and superior border of the IT band identified, the fascia was incised with a new knife just above any perforators from the IT band. The TFL muscle belly was bluntly dissected away from the fascia and moved laterally. The fat between TFL and rectus was identified to ensure the dissection was not within the TFL. Blunt dissection created space between abductors and the capsule and retractor was placed over the lateral femoral neck. The fibers of the rectus femoris tendon were identified and these were freed from the anterior capsule. A second cobra retractor was placed around the medial femoral neck. The TFL was further retracted laterally to show the deep fascia. Careful dissection through this layer identified three main crossing vessels of the lateral femoral circumflex. These were cauterized in multiple locations and then cut without any noticeable bleeding. The TFL was further released bluntly from the deep fascia to expose anterior hip capsule and fat The soft tissue orthopaedic retractor was then placed beneath the TFL and against sartorius and medial soft tissues to protect and retract the soft tissues. A T-capsulotomy was then performed starting at the superior lateral acetabulum and moving distally to the intertrochanteric ridge. These capsular flaps were tagged with a No. 1 Vicryl and elevated from within. The capsular flaps were released to the shoulder of the lateral neck and to the lesser trochanter to give excellent visualization of the proximal femur. A neck osteotomy was performed using an oscillating saw based on preoperative templates. This cut started in the shoulder and of the lateral neck and exited medially. The saw was at all times directed medially to avoid injury to the greater trochanter. Gross traction was applied to the leg and the osteotomy opened. The femoral head was removed with a corkscrew, making sure to protect the TFL on its exit. Traction was released after head removal. This was measured on the back table to determine the starting reamer size. A synovectomy was performed of any inflamed synovium, particular that restricting view of the acetabulum. An anterior retractor was placed over the anterior wall between capsule and labrum and attached to the Gripper retraction system. The femur was rotated to 90 degrees and medial capsule was fully released until the lesser trochanter was palpable and visible; the femur was returned to 30 degrees. A posterior retractor was placed similarly between capsule and labrum. This provided excellent visualization. The contents of the cotyloid fossa were removed with electrocautery and the labrum was removed with a knife. There was a notable floor osteophyte. There was significant chondromalacia of the superior acetabulum. Acetabular reaming began with a 44mm reamer. This first reaming was directed anterior to posterior and medial to get down to the true floor. This was inspected and reamed until the true floor was reached. The anterior retractor was then released and entry and exit was provided by traction on the capsular flaps. I then reamed sequentially up to a 48mm reamer where good fit was obtained. The larger reamers were oriented based on anatomical reference of the anterior and lateral jimenez to ensure proper abduction and anteversion. Positioning and size was confirmed with the fluoroscopy. A 48mm Depuy Wilmore acetabular component was selected. The acetabulum was reamed around the periphery with the selected acetabular size to prevent a rim fit. The deep tissues were irrigated. The acetabular component was then impacted in a position of about 40-45 degrees of abduction and 15-20 degrees of anteversion, using the patient?s anatomy as the ultimate landmark. Fluoroscopy was used to confirm this. There was excellent gift packer of the acetabular component and the inserting handle was removed. The acetabular liner, Depuy [id number] polyethylene liner, was inserted and lined up with the tines of the acetabular component. There was no soft tissue interposition. The liner was then impacted into position and confirmed to be well-seated. A portion of the collin-articular cocktail was then injected around the acetabulum into the capsule and periosteum. This cocktail consisted of 123mg of Ropivacaine, 0.25mg of Epinephrine, 0.04mg of Clonidine, and 15mg of Ketorolac, diluted to 50cc. The leg was rotated to 120 degrees. Any remaining medial capsule was released until the lesser trochanter was easily palpable. A retractor was placed medially. The lateral capsule was further released into the shoulder to allow access to the greater trochanter. A Garcia retractor was placed over the greater trochanter which allowed the trochanter to flip in front of the capsule for excellent exposure. The leg was brought down into maximal extension and 20 degrees of adduction while ensuring there was no impingement on the acetabulum. Any remnant capsule within the trochanter was released. Piriformis and obturator externis were identified and protected. There was excellent access to the proximal femur. The lateral neck remnant was removed with a rongeur. A blunt canal probe was used to identify the canal and trajectory for later broaching. A box osteotome initiated the broach course. A small curved rasp and a curved curette were used to work laterally. Broaching then began with a size 8 Corail broach. This was inserted manually around the trochanter and into the canal before mallet blows. The broach was seated to a few millimeters below the cut level based on the neck cut and the preoperative template. Sequential broaching was continued with the [employer] pneumatic broaching device until a tight fit was obtained with good rotational control of the femur. A trial 125 degree standard neck was inserted along with a +5 trial head. The leg was brought out of extension and adduction and then reduced with traction and internal rotation. The leg was stable anteriorly in a position of 30 degrees of extension and 90 degrees of external rotation. Fluoroscopy was used to ensure there was no fracture and the stem was seated well. Leg lengths were checked with an AP pelvis and pelvic reference points. Audigence navigation system was used to confirm appropriate positioning and leg length and offset. This showed overcorrection of offset and appropriate correction of leg length. Therefore, moving to a short neck +5 mm head actively corrected leg length and offset. Once content with the desired offset and leg lengths, the leg was brought back into extension, external rotation and adduction. The periosteum and surrounding tissue was injected with remaining portion of the collin-articular cocktail. The proximal femur was irrigated as well as the deep tissues. The Depuy Corail short neck collared stem, size 10, was then manually inserted into the proximal femur making sure to control rotation. It was then malleted into position with light blows, giving breaks to allow bone expansion and decrease risk of fracture. The selected Depuy Altrx Ceramic Head, size 32+5mm, was then placed onto the clean and dry trunnion and secured with impaction onto the tapered fit. The leg was brought back out of extension and adduction and reduced with traction and internal rotation. Stability was confirmed with no shuck at 90 degrees of external rotation and 30 degrees of extension. No impingement through range of motion arc. Final x-ray images were obtained with fluoroscopy to confirm adequate positioning and no intraoperative fracture. The deep tissues were thoroughly irrigated with Surgiphor, betadine solution. This was allowed to sit in the wound for 3 minutes before being thoroughly irrigated out with normal saline. The capsule was then reapproximated with the previously placed sutures as well as a #1 Vicryl through a portion of the indirect head of the rectus femoris and the superior capsule. The TFL fascia was finally closed with a No. 2 Stratafix, barbed suture. Deep tissues were then reapproximated with 0 Vicryl and a running 2-0 Vicryl. The skin was closed with a running 4-0 Monocryl in a subcuticular fashion. This was reinforced with skin glue. A Mepilex silver dressing was applied. At the end of the case, all counts were correct. Ninfa was transferred to the hospital bed without difficulty and suffering no apparent complication. Ninfa has a good prognosis. Physical therapy will start today and without restrictions, weight-bearing as tolerated. Aspirin 81mg BID will be used for DVT prophylaxis. Date of Procedure: 12/20/24
[2024-12-20] MEDS: ceFAZolin 2 GM/50 ML BAG IVPB (07:46)
[2024-12-20] MEDS: TRANEXAMIC ACID/SOD. CHL. 1,000 MG/100 ML BAG 600 MG IVPB (07:52)
[2024-12-20] MEDS: ROPIvacaine 0.2% 200 MG/100 ML BAG (08:10)
[2024-12-20] MEDS: Ketorolac 30 MG/ML VIAL (08:10)
[2024-12-20] MEDS: EPINEPHrine 1 MG/ML AMP pres-free (08:10)
[2024-12-20] MEDS: HYDROmorphone 2 MG/ML SYR IVP ×2 (09:23→09:55)
[2024-12-20] MEDS: fentaNYL 100 MCG/2 ML VIAL IVP (09:35)
--- NOTE | 2024-12-20 10:18 | ANES_ITS ---
Date of service: 12/20/24 Time of Service: 10:10 Anesthesia Note Report Anesthesia Note: Patient seen in PACU, awake and conversive, oriented. Patient reporting pain 3/10, tolerable at this time. I am stopping by to discuss the post-extubation finding of loose teeth of 23,22 possibly 21 as well. I discussed noting post-induction and pre-intubation significant calculus or other substance encasing 24,25,26. As is noted in the anesthetic record, the patient's teeth were intact after extubation and about 3- 4 minutes later we suctioned and noted her lower left incisors and canine appeared loose and moving as a solid unit of 2-3, no teeth missing. When I asked the patient in PACU about loose teeth, she denies. I then stated that on assessment she now has a few moving on her left lower jaw. I asked the patient to run her tongue on her teeth and push on them lightly, patient did this and stated No, everything feels normal. I asked again if she had loose teeth, again she denies. I asked her to feel her teeth again, she again states they feel normal. She did report that she is feeling a little loopy right now. Per this I did discuss that I would be back to talk with her soon.
[2024-12-20] MEDS: Tranexamic Acid 650 MG TAB 1300 MG PO (10:44)
[2024-12-20] MEDS: traMADol 50 MG TAB PO (10:44)
--- NOTE | 2024-12-20 11:35 | IN_ITS ---
PT Notes Visit Reasons: R THR Physical Therapy Day Surgery Initial Evaluation Date: 12/22/2024 Referring Doctor: DEBI Bhat PT Orders: PT CONSULT: S/P Ortho Surgery Precautions: WBAT on the R LE with AD. Patient Profile/Admitting Diagnosis: Ninfa is a 79-year-old female with degenerative joint disease of the R hip and is S/P right total hip arthroplasty on postoperative day 0. PMHX: All Active Problems Degenerative joint disease of right knee (Acute) Degenerative joint disease of right hip (Acute) POCUS injection: 10/28/2023 Chondrocalcinosis (Acute) Hyperlipidemia (Acute) Mild intermittent asthma (Acute) Left foot drop (Acute) Lumbosacral radiculopathy (Acute) s/p L4-5 laminectomy w/medial facetectomy and lateral recess decompression, resulted in L foot drop Ruptured synovial cyst of popliteal space (Acute) Rheumatoid arthritis (Chronic) Medical History Cataract GERD (gastroesophageal reflux disease) Sciatica Hypertensive disorder Social History/Home Situation: Lives alone in a private home with 1 step up to enter, no rails on B sides but with bars that she could pull from. Equipment Owned/DME: None Subjective: Reported being achy on the R hip at rest, less with walking. Worried about her 15 sheeps but understands that she needs to be safe and take it easy whlle healing at home. Objective: General Observation: Mepilex Ag over surgical incision. TEDS to B legs. Mental Status: A and O x 4 Pain: 1-2/10 on the R hip ROM: Right Lower Extremity: Hip flexion WFL. Hip abduction WFL. Knee flexion WFL. Ankle dorsiflexion WFL. Ankle plantarflexion WFL. Left Lower Extremity: Hip flexion WFL. Hip abduction WFL. Knee flexion WFL. Ankle dorsiflexion to neutral only. Ankle plantarflexion WFL. Strength: . Right Lower Extremity: Hip flexors 4-/5. Hip abductors 4-/5. Knee flexors 4-/5. Knee extensors 4-/5. Ankle dorsiflexors 5/5. Ankle plantarflexors 5/5. Left Lower Extremity:Hip flexors 5/5. Hip abductors 5/5. Knee flexors 4/5. Knee extensors 4-/5. Ankle dorsiflexors 3-/5. Ankle plantarflexors 4-/5. Sensation: Intact as to pain and light pressure in B LE Bed Mobility/Transfers: Minimal cueing provided for use of B hands as needed for support, movement sequence, AD management, and posture to reduce fall risk and minimize pain report Supine to sit stand by assist Sit to stand stand by assist with FWW Stand to sit stand by assist with FWW Bed to chair stand by assist with FWW Gait: Facilitated safe and correct performance of level surface ambulation covering a distance of 100 feet using youth size youth-sized front-wheeled walker with decreased dorsiflexion on the left due to pre-existing peroneal peripheral neuropathy on the left side. Step length and height asymmetric but no LOB. Reported 1-2/10 pain on the right hip throughout activity. Minimal verbal cueing provided for correct technique, posture, weight distribution through BLE, and AD management to minimize pain reported reduce fall risk. Stairs: Guided patient with safe and correct negotiation of 3 x 4 inch steps and 2 x 6 inch steps while holding onto bilateral rails with contact-guard assist and minimal verbal cueing for correct technique, hand placement, and posture to minimize pain reported reduce fall risk. Balance: Static Sitting: Reshma Dynamic Sitting: Normal Static Standing: Fair Dynamic Standing: Fair Special Tests: Mobility Limitations Standardized Measure [facility] AM-PAC 6 clicks Basic Mobility Inpatient Short Form: Raw Score: 23 CMS Score: 11%deficit Informed Consent/Education: Patient instructed in purpose of PT consult. Packet containing [] exercise protocol has been given to patient. Education and training on initial set of exercises that can be done at home have been completed with patient. Assessment: Patient requires the use of a front wheeled walker for all mobility ADL performance to maximize independence and reduce fall risk. Pre-existing peroneal peripheral neuropathy on the left side minimally affected gait pattern. was fitted for a youth-sized wheelchair today. Patient presents with clinical signs and symptoms consistent with current/admitting diagnoses that have resulted to mobility limitations, gait instability, generalized weakness, and impairment of motor control as demonstrated by the following impairment level findings: 1. Decreased strength to left hip major muscle groups 2. Impaired standing balance Impairments are contributing to the following functional limitations: 1. Inability to safely ambulate without assistive device 2. Increase completion time for mobility ADL performance 3. Increased fall risk Patient is assessed as a 13356 moderate complexity based on the following: History: 79-year-old female with impairment level findings, functional limitations, and past medical history as indicated above Examination: Demonstrable impairment in strength, balance, and mobility level with underlying impairments and functional limitations as documented above Presentation: Evolving Decision Makin moderate complexity Goals: N/A. PT evaluation and 1-2 treatment sessions only for functional mobility training using recommended AD and for HEP instruction. Plan of Care/Treatment Plan: N/A. PT evaluation and 1-2 treatment session only for functional mobility training using recommended AD and for HEP instruction. DISCHARGE RECOMMENDATIONS: Home when medically cleared by orthopedic surgeon. Recommend outpatient PT services in order to optimize functional mobility outcomes and facilitate return to independent community ambulation without an assistive device. TREATMENT CODE/TIME: 73474 x 29 minutes for 1 unit (11:35-12:04). Thank you for the opportunity to participate in the care of this patient. Cristina Pedroza PT, DPT, CLT [facility] [place], [place]
--- NOTE | 2024-12-20 11:43 | W.ANESPOSTOP ---
Postoperative Evaluation Date, Time and Location Date Performed: 12/20/24 Time Performed: 11:43 Patient Location: Day Surgery Unit Vital Signs Most Recent Imported Vital Signs: Most Recent Vital Signs Temp Pulse Resp BP Pulse Ox 36.7 C 56 L 16 125/68 100 12/20/24 10:57 12/20/24 10:57 12/20/24 10:57 12/20/24 10:57 12/20/24 10:57 Pain Score Most Recent Pain Score: Most Recent Pain Score Pain Level 2 12/20/24 10:57 Assessment Mental Status: Awake (Alert & Oriented to Patient Baseline) Airway and Respiratory Function: Patent airway with normal (patient baseline) respiratory exam Cardiovascular Function: Hemodynamically Stable Hydration Status: Adequately Hydrated Nausea & Vomiting: No Nausea or Vomiting Pain: Pain is tolerable per patient Peripheral Nerve Block: Patient did not receive a nerve block
== END 2024-12-20 12:15 | disposition home or self-care (01) ==
PROVIDERS: PCP Family Medicine; Visit Provider Student in an Organized Health Care Education/Training Program
PROC: (CPT 27130; principal; 2024-12-20 07:30)
DX: M16.11 Unilateral primary osteoarthritis, right hip (principal)
CPT/HCPCS: 20985; 27130; 97162; 73501; C1776; J0166; J0690; J1100; J1171; J1885; J2003; J2250; J2401; J2405; J2704; J2795; J3010; J3475

== ENCOUNTER 2025-01-04 11:42 | Outpatient (CLI) | payer MEDICARE, SELFPAY ==
--- NOTE | 2025-01-04 09:53 | DI.RAD_ITS ---
Exam(s) XR HIP RT COMPLETE AP PELVIS EXAM: XR HIP RT COMPLETE AP PELVIS CLINICAL HISTORY: 1ST POST OP S/P R MIRELA. TECHNIQUE: 2D digital imaging was performed. COMPARISON: CR XR PELVIS AP from 09/18/2024 FINDINGS: Two views There is satisfactory position alignment of the components of the recently placed right hip prosthesis (12/20/2024). No evidence of fracture or loosening of the components. No radiographic evidence of osteomyelitis. IMPRESSION: Stable satisfactory appearance DATA REPOSITORY: RADIATION DOSE DELIVERED:
== END 2025-01-04 11:43 | disposition home or self-care (01) ==
LOC: DIORS 11:42
PROVIDERS: PCP Family Medicine; Referring Provider Family Medicine; Visit Provider Student in an Organized Health Care Education/Training Program
DX: Z47.1 Aftercare following joint replacement surgery (principal); Z96.641 Presence of right artificial hip joint
CPT/HCPCS: 99024; 73502

== ENCOUNTER → 2025-02-08 08:46 | Outpatient (BNVA) | payer MEDICARE, SELFPAY | PROVIDERS: PCP Family Medicine; Referring Provider Family Medicine; Visit Provider Physician Assistant | DX: Z47.1 Aftercare following joint replacement surgery (principal); Z96.641 Presence of right artificial hip joint | CPT/HCPCS: 99024 ==

== ENCOUNTER 2025-02-26 15:50 | Outpatient (CLI) | payer MEDICARE, SELFPAY ==
--- NOTE | 2025-02-26 14:45 | DI.RAD_ITS ---
Exam(s) XR HIP RT AP LAT ONLY EXAM: XR HIP RT AP LAT ONLY CLINICAL HISTORY: RIGHT HIP PAIN. TECHNIQUE: 2D digital imaging was performed. COMPARISON: CR XR HIP RT COMPLETE AP PELVIS from 01/04/2025 FINDINGS: Two views Position alignment of the components prosthesis of the right hip remains stable with no fracture or loosening evident. No evidence of osteomyelitis. IMPRESSION: Stable satisfactory appearance DATA REPOSITORY: RADIATION DOSE DELIVERED:
== END 2025-02-26 15:51 | disposition home or self-care (01) ==
LOC: DIORS 15:50
PROVIDERS: PCP Family Medicine; Referring Provider Family Medicine; Visit Provider Student in an Organized Health Care Education/Training Program
DX: Z47.1 Aftercare following joint replacement surgery (principal); Z96.641 Presence of right artificial hip joint; M24.851 Other specific joint derangements of right hip, not elsewhere classified
CPT/HCPCS: 99024; 73502